=== PATIENT | male | born 1990 | race Caucasian/White ===

== ENCOUNTER 2022-08-31 21:16 | Emergency (ER) | payer SELFPAY ==
[2022-08-31 21:22] VITALS: BP 128/78; PULSE 77; RESP 18; TEMP 37.1; O2SAT 96
--- NOTE | 2022-08-31 21:45 | W.ED.GENAD ---
Discharge Plan Disposition Patient Disposition: Home Discharge Details Clinical Impression: Tick bite of abdomen ED Provider: Richy Thompson Home Meds and New Rx's Prescriptions: New doxycycline hyclate 100 mg capsule 100 mg PO BID Qty: 20 0RF Discharge Instructions Instructions: Tick Bite (ED) Additional Instructions: Continue to monitor symptoms return immediately for any new or worsening of your condition. Please take antibiotic until all capsules are gone and follow-up with primary care provider for reassessment if not fully improving. Referrals: Primary Care Provider [Outside] - 1 week (If not improving) Discharge Data Discharge Date/Time-TO BE ENTERED AT DEPARTURE: 08/31/22 22:01 Medical Decision Making Patient presenting to the emergency department for chief complaint of tick bite. He states that little more than a week ago he had a tick that bit his abdomen which he pulled off. He did state it was slightly engorged but did not think that it was attached for too long. Now over the past couple days he started to have right shoulder pain and discomfort. 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 Patient denies all other symptoms. Physical exam does show an area consistent with tick bite but does not look cellulitic is no bull's-eye type rash. Examination of the right shoulder is also unremarkable and patient has full range of motion, no swelling no erythema. Given though the patient had tick bite in approximately 1 week later started having arthralgias I am concerned about potential Lyme or tickborne illness. I do feel that it is too early for testing to be prudent or reliable so we will start patient on doxycycline for 10 days have him monitor symptoms return for new or worsening symptoms or follow-up with primary care provider. After discussion of diagnosis and plan of care patient has no further needs, questions, or concerns and states clear understanding to return to the emergency department for any worsening symptoms. This documentation was generated using [employer] system, please disregard any oddities of phrase or misspellings. HPI General Mode of arrival: ambulatory. Date/Time Provider Initiated Documentation: 08/31/22 21:29. Limitations to Documentation: no limitations. Information obtained by: patient and RN notes reviewed. History of Present Illness 31 year old M presents to the emergency department with the chief complaint of Tick bite, described as moderate, with intensity rated at 6. Quality is described as aching, and is localized to the right and upper extremity. Patient started experiencing this day(s) (4) and it has been constant. No relieving factors improve symptom(s), Patient notes no other symptoms.. Patient did receive the following treatments prior to arrival, none Related Data Home Medications Medication Instructions Recorded Confirmed doxycycline hyclate 100 mg capsule 100 mg PO BID #20 caps 08/31/22 Previous Rx's Medication Instructions Recorded doxycycline hyclate 100 mg capsule 100 mg PO BID #20 caps 08/31/22 Allergies Allergy/AdvReac Type Severity Reaction Status Date / Time Sulfa (Sulfonamide AdvReac Unverified 08/31/22 21:29 Antibiotics) General Stated Complaint: AnimalBite DIXIE: 4 Review of Systems Constitutional Constitutional: Denies fever(s) and Denies headache(s) ENT Ears, Nose, Mouth, and Throat: Denies headache(s) Musculoskeletal Musculoskeletal: Denies myalgias, Reports arthralgias and Denies joint swelling Integumentary/Breasts Skin/Breast: Reports as per HPI, Denies erythema and Denies rash Neurologic Neurologic: Denies headache(s) and Denies paresthesias PFSH All Active Problems (Updated 08/31/22 @ 21:46 by Richy Thompson NP) Tick bite of abdomen (Acute) Social History Smoking/Tobacco Use Status: Current every day Smoking risk assessment performed?: Yes Alcohol Intake: current Alcohol Intake frequency: other Alcohol type: beer Substance use type: does not use Exam Const General: cooperative, comfortable and no acute distress Orientation: alert, awake and oriented x3 Resp Effort & Inspection: normal respiratory effort and able to speak in complete sentences Skin General skin exam: erythema (Circular area with central bite gian consistent with insect/tick bite), no fluctuance, no induration and other Rashes: no rashes Neuro General: patient alert, patient awake and patient oriented x3 Extrem General: normal to inspection, full ROM, capillary refill normal and normal exam except as noted Right upper extremity: normal to inspection, full ROM and shoulder/upper arm Details: normal to inspection; no tenderness and no swelling Course Vital Signs Vital signs: Vital Signs Temperature 37.1 C 08/31/22 21: Pulse 77 08/31/22 21:22 Respiratory Rate 18 08/31/22 21:22 Blood Pressure 128/78 08/31/22 21:22 Pulse Oximetry 96 08/31/22 21:22 Temperature 37.1 C 08/31/22 21:22 Temperature Source Skin 08/31/22 21:22 Pulse 77 08/31/22 21:22 Respiratory Rate 18 08/31/22 21:22 Respiratory Effort Normal 08/31/22 21:30 Blood Pressure 128/78 08/31/22 21:22 Blood Pressure Position Sitting 08/31/22 21:22 Pulse Oximetry 96 08/31/22 21:22
[2022-08-31] MEDS: Doxycycline Hyclate 100 MG CAP PO (21:58)
== END 2022-08-31 22:01 | disposition home or self-care (01) ==
PROVIDERS: Emergency Provider Nurse Practitioner Family
DX: S30.861A Insect bite (nonvenomous) of abdominal wall, initial encounter (principal); W57.XXXA Bitten or stung by nonvenomous insect and other nonvenomous arthropods, initial encounter; M25.511 Pain in right shoulder
CPT/HCPCS: 99283; 99284

== ENCOUNTER 2023-08-03 15:59 | Emergency (ER) | payer SELFPAY ==
--- NOTE | 2023-08-03 16:00 | DI.RAD_ITS ---
Exam(s) XR KNEE RT 4V AP,LAT,GERARDO,PAT EXAM: XR KNEE RT 4V AP,LAT,GERARDO,PAT CLINICAL HISTORY: inferior knee and patella pain over 2 months. TECHNIQUE: 2D digital imaging was performed. Three views. COMPARISON: No exams were available for comparison FINDINGS: BONES: No acute fracture is present. No bony destructive lesion is seen. JOINTS: The knee is normally aligned. No joint effusion is seen. The joint spaces are maintained. SOFT TISSUE: Normal. IMPRESSION: Unremarkable radiographs of the right knee. DATA REPOSITORY: RADIATION DOSE DELIVERED:
[2023-08-03 16:04] VITALS: BP 173/91; PULSE 84; RESP 16; TEMP 37.2; O2SAT 99
--- NOTE | 2023-08-03 16:10 | ED.GENADUL_ITS ---
Discharge Plan Disposition Patient Disposition: Home Condition: Good Discharge Details Clinical Impression: Chronic pain of right knee Primary Care Provider: None,None ED Provider: Valdez Cohen Home Meds and New Rx's Prescriptions: No Action No Known Home Meds Discharge Instructions Instructions: Knee Pain (ED) Additional Instructions: At this time the x-ray does not show any evidence of fracture or significant abnormality. Please apply the Voltaren gel every 6 hours. Please take Tylenol and Motrin as needed for pain. Please use the knee brace to help with ambulation. We will place a referral for you for physical therapy. Please follow-up closely with them. If in spite of this therapy, the knee brace, and physical therapy you are not noticing improvement over the next 2 to 3 months, you may require further imaging like an MRI. He would be important to follow-up with an store receiving specialist for further discussion of this. If you notice any worsening of your symptoms, or any new symptoms such as vomiting, diarrhea, fever, chills, shortness of breath, chest pain, numbness, weakness, or fainting , please return immediately to the emergency department for reevaluation. Please follow up with your primary care provider as soon as possible for reassessment and reevaluation. As always, it was a pleasure participating in your medical care today. Stand Alone Forms: Physical Therapy Referral, Work Release Referrals: Alonzo Morrissey MD [ [facility] STAFF PHYSICIAN] - Wallace Castro MD [ [facility] STAFF PHYSICIAN] - [facility] General Date/Time Provider Initiated Documentation: 08/03/23 16:00 . [facility] Narrative: 32-year-old male with no significant past medical history who presents today for evaluation of right knee pain. Patient states that for the past 2 to 3 months he has had pain in his knee, worse when he goes up and down stairs, he denies any particular aggravating event when it first happened. He states that it has been pretty constant/consistent in severity. He denies any numbness or tingling. 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 He denies fever or chills. No history of injury as a child. He did not play football. He did play track when he was young. He has taken NSAIDs without any improvement. No other complaints at this time. Related Data Home Medications Medication Instructions Recorded Confirmed Unknown [No Known Home Meds] 08/03/23 08/03/23 Allergies Allergy/AdvReac Type Severity Reaction Status Date / Time Sulfa (Sulfonamide AdvReac Mild Nausea Unverified 08/03/23 16:03 Antibiotics) General Stated Complaint: Orthopedic DIXIE: 4 Review of Systems All systems reviewed & are unremarkable except as noted in HPI and below Exam Narrative Exam Narrative: 1.Const: Well-nourished, Well-developed, appearing stated age 2.Eyes: PERRL, no conjunctival injection, and symmetrical lids. 3.ENT: Atraumatic external nose and ears. Moist MM. Neck: Symmetric, trachea midline, No thyromegaly. 4.CVS: +S1/S2, No murmurs or gallops. Peripheral pulses 2+ and equal in all extremities. Brisk capillary refill in all extremities. 5.RESP: Unlabored respiratory effort. Clear to auscultation bilaterally. No wheezes rales or rhonchi 6.GI: Soft, Nontender/Nondistended, No hepatosplenomegaly. No guarding or r ebound. 7.MSK: Bilateral knees are atraumatic in appearance. Significant swelling for the right or left knee. Minimal tenderness inferior to the patella on the left and right aspect of the right patella. Minimal tenderness around the tibial plateau. Leg is stable to varus and valgus stressing, no significant pain with valgus stressing, mild pain with varus stressing. No significant pain with anterior posterior drawer test. Mild pain with movement of the patella. Mild pain with Melisa's test. No redness or warmth to suggest cellulitis. No posterior knee pain. Capillary refill intact. Pulses intact. 8.Skin: Warm, Dry. No rashes or lesions. 9.Neuro: general superintendent II-XII grossly intact. Sensation grossly intact, no focal neurologic deficits. 10.Psych: (AAO) x3. Appropriate mood and affect Course Vital Signs Vital signs: Vital Signs Temperature 37.2 C 08/03/23 16:04 Pulse 84 08/03/23 16:04 Respiratory Rate 16 08/03/23 16:04 Blood Pressure 173/91 H 08/03/23 16:04 Pulse Oximetry 99 08/03/23 16:04 Temperature 37.2 C 08/03/23 16:04 Temperature Source Temporal Artery Scan 08/03/23 16:04 Pulse 84 08/03/23 16:04 Respiratory Rate 16 08/03/23 16:04 Respiratory Effort Normal, Non-Labored 08/03/23 16:06 Blood Pressure 173/91 H 08/03/23 16:04 Blood Pressure Position Sitting 08/03/23 16:04 Pulse Oximetry 99 08/03/23 16:04 Oxygen Delivery Method Room Air 08/03/23 16:04 Oxygen Flow Rate 0 08/03/23 16:04 Pain Level 9 08/03/23 16:04 Medical Decision Making 32-year-old male with no significant past medical history who presents today for evaluation of right knee pain. Patient states that for the past 2 to 3 months he has had pain in his knee, worse when he goes up and down stairs, he denies any particular aggravating event when it first happened. He states that it has been pretty constant/consistent in severity. He denies any numbness or tingling. He does work for the [employer] department, he goes up multiple stairs for his other jobs as well. He denies fever or chills. No history of injury as a child. He did not play football. He did play track when he was young. He has taken NSAIDs without any improvement. No other complaints at this time. Exam demonstrates mild tenderness in the inferior aspect of the patella and over the tibial plateau. No significant swelling redness or warmth to suggest infection. Mild pain with varus stressing, positive Melisa's, but no joint laxity. Suspect mild meniscal irritation. Will get x-rays to rule out fracture, recommend physical therapy, monitor closely and reassess. Will give a hinged knee brace. 6:30 PM X-ray negative for acute process. Unfortunately we are out of hinged knee braces, and recommend he acquire 1 online, and we did give him our recommendations. Recommend continued Voltaren gel application. Will place physical therapy referral. Discussed red flags for which to return. Suspect mild meniscal or ligamentous irritation. If patient does not have improvement after 1 to 2 months of physical therapy and his knee brace and NSAID therapy, then will recommend potential outpatient nonemergent orthopedic or MRI evaluation. I have extensively reviewed the treatment plan and discharge instructions with the patient and their family. I have addressed all patient concerns at this time. The patient and family was made aware of what symptoms to monitor for that would warrant a return to the emergency department. Discussed the plan with the patient and family, they demonstrate verbal understanding and agreement with our assessment and plan at this time. The documentation in this chart was dictated using [employer] dictation software. Please excuse any dictation errors. FINDINGS: Bones/joints: Normal trabecular architecture is seen throughout the right knee with no acute fractures detected. Soft tissues: Unremarkable. IMPRESSION: No acute findings. Thank you for allowing us to participate in the care of your patient. Dictated and Authenticated by: Lawson Wilson MD 08/03/2023 5:56 PM Eastern Time ([place] & [place]) Quality:SDOH Health Related Social Needs: No Data to Display PFSH All Active Problems (Updated 08/03/23 @ 18:25 by Valdez Cohen DO) Chronic pain of right knee (Acute) Social History Smoking/Tobacco Use Status: Current every day Smoking risk assessment performed?: Yes Alcohol Intake: current Alcohol Intake frequency: other Alcohol type: beer Drug use: Never Substance use type: does not use Housing: apartment Do you feel safe at home: Yes Do you feel safe in your relationship?: Yes
--- NOTE | 2023-08-03 17:57 | DI.VRAD_ITS ---
PROCEDURE INFORMATION: Exam: XR Right Knee Exam date and time: 08/03/2023 4:43 PM Age: 32 years old Clinical indication: Right; Patient HX: Inferior knee and patella pain over 2 months TECHNIQUE: Imaging protocol: Radiologic exam of the Right knee. Views: 4 or more views. COMPARISON: No relevant prior studies available. FINDINGS: Bones/joints: Normal trabecular architecture is seen throughout the right knee with no acute fractures detected. Soft tissues: Unremarkable. IMPRESSION: No acute findings. Dictated and Authenticated by: Lawson Wilson MD. Ordering:TONO Kellogg MD
[2023-08-03 18:38] VITALS: BP 158/74; PULSE 84; RESP 16; TEMP 37.2; O2SAT 99
[2023-08-03] MEDS: Diclofenac 1% Gel 100 GM TUBE TP (18:40)
== END 2023-08-03 18:40 | disposition home or self-care (01) ==
PROVIDERS: Emergency Provider Student in an Organized Health Care Education/Training Program
DX: M25.561 Pain in right knee (principal); F17.200 Nicotine dependence, unspecified, uncomplicated
CPT/HCPCS: 99283; 73564

== ENCOUNTER 2024-03-15 11:04 | Emergency (ER) | payer SELFPAY ==
[2024-03-15 11:13] VITALS: BP 156/96; PULSE 104; RESP 15; TEMP 36.4; O2SAT 98
--- NOTE | 2024-03-15 11:43 | ED.GENADUL_ITS ---
Discharge Plan Disposition Patient Disposition: Home Condition: Good Discharge Details Clinical Impression: Lesion of skin of scalp, Atypical nevus of scalp Primary Care Provider: Unknown,Unknown ED Provider: Valdez Cohen Home Meds and New Rx's Prescriptions: No Action No Known Home Meds Discharge Instructions Additional Instructions: At this time your lesion certainly is atypical however it does not show evidence of an infection, an arterial venous malformation, or other life-threatening etiology. That being said I am concerned that you have a hyperplastic response from the initial trauma/injury. This lesion needs to be further evaluated, surgically removed, and evaluated by pathologist. The surgical services will contact you for an appointment time. If you notice any worsening of your symptoms, or any new symptoms such as vomiting, diarrhea, fever, chills, shortness of breath, chest pain, numbness, weakness, or fainting , please return immediately to the emergency department for reevaluation. Please follow up with your primary care provider as soon as possible for reassessment and reevaluation. As always, it was a pleasure participating in your medical care today. Referrals: Asif Guajardo MD [ [facility] STAFF PHYSICIAN] - Discharge Data Discharge Date/Time-TO BE ENTERED AT DEPARTURE: 03/15/24 11:48 HPI General Date/Time Provider Initiated Documentation: 03/15/24 11:26 . HPI Narrative: This is a pleasant 33-year-old male with no significant past medical history who presents today for evaluation of a lesion on his scalp. About 3 months ago he was working on a car when the flat part of the trunk came down and hit his head. He had a small scrape there. He subsequently developed a scab, but over time a lesion developed in that area and has been growing quite rapidly over the past 2 to 3 months. He denies any significant pain or tenderness. He does admit to mild pain when he scraped the scab off, but otherwise denies any symptomatology. There is a small amount of bleeding that occurs when this happens, but no other bleeding otherwise. No history of skin cancer lesions otherwise. No other complaints. Related Data Home Medications ?Medication ?Instructions ?Recorded ?Confirmed Unknown [No Known Home Meds] 08/03/23 03/15/24 Allergies Allergy/AdvReac Type Severity Reaction Status Date / Time Sulfa (Sulfonamide AdvReac Mild Nausea Unverified 03/15/24 11:18 Antibiotics) General Stated Complaint: HeadInjury DIXIE: 4 Exam Narrative Exam Narrative: 1.Const: Well-nourished, Well-developed, appearing stated age 2.Eyes: PERRL, no conjunctival injection, and symmetrical lids. 3.ENT: Atraumatic external nose and ears. Moist MM. Neck: Symmetric, trachea midline, No thyromegaly. 4.CVS: +S1/S2, Peripheral pulses 2+ and equal in all extremities. Brisk capillary refill in all extremities. 5.RESP: Unlabored respiratory effort. Clear to auscultation bilaterally. No wheezes rales or rhonchi 6.GI: Soft, Nontender/Nondistended, No hepatosplenomegaly. No guarding or rebound. 7.MSK: Normocephalic/Atraumatic, Extremities w/o deformity or ttp No cyanosis or clubbing, Normal movement of all extremities 8.Skin: Warm, Dry. On the patient's scalp there is a polyp-like lesion with a questionable minimal stalk at the base. Scab is on the top of it total diameter is about 1 cm. It is nearly spherical, and raised about 7 mm of the skin. No active bleeding. 9.Neuro: environmental sustainability manager II-XII grossly intact. Sensation grossly intact, no focal neurologic deficits. 10.Psych: (AAO) x3. Appropriate mood and affect Course Vital Signs Vital signs: Vital Signs Temperature 36.4 C 03/15/24 11:13 Pulse 104 H 03/15/24 11:13 Respiratory Rate 15 03/15/24 11:13 Blood Pressure 156/96 H 03/15/24 11:13 Pulse Oximetry 98 03/15/24 11:13 Temperature 36.4 C 03/15/24 11:13 Pulse 104 H 03/15/24 11:13 Respiratory Rate 15 03/15/24 11:13 Blood Pressure 156/96 H 03/15/24 11:13 Blood Pressure Position Sitting 03/15/24 11:13 Pulse Oximetry 98 03/15/24 11:13 Oxygen Delivery Method Room Air 03/15/24 11:13 Oxygen Flow Rate 0 03/15/24 11:13 Medical Decision Making This is a pleasant 33-year-old male with no significant past medical history who presents today for evaluation of a lesion on his scalp. About 3 months ago he was working on a car when the flat part of the trunk came down and hit his head. He had a small scrape there. He subsequently developed a scab, but over time a lesion developed in that area and has been growing quite rapidly over the past 2 to 3 months. He denies any significant pain or tenderness. He does admit to mild pain when he scraped the scab off, but otherwise denies any symptomatology. There is a small amount of bleeding that occurs when this happens, but no other bleeding otherwise. No history of skin cancer lesions otherwise. No other complaints. On the patient's scalp there is a polyp-like lesion with a questionable minimal stalk at the base. Scab is on the top of it total diameter is about 1 cm. It is nearly spherical, and raised about 7 mm of the skin. No active bleeding. Bedside ultrasound shows no evidence of large AVM in the lesion. Please see associated picture for better understanding. Suspect hyperplastic posttraumatic lesion. Differential does include basal cell or squamous cell carcinoma although this is less likely. Atypical nevus is also on the differential. We did contact surgery and spoke with Dr. Guajardo. He will see the patient in the clinic for removal and pathology evaluation. Patient otherwise stable for discharge. Will place referral on his behalf. I have extensively reviewed the treatment plan and discharge instructions with the patient. I have addressed all patient concerns at this time. The patient was made aware of what symptoms to monitor for that would warrant a return to the emergency department. Discussed the plan with the patient, they demonstrate verbal understanding and agreement with our assessment and plan at this time. The documentation in this chart was dictated using [employer] dictation software. Please excuse any dictation errors. Quality:SDOH Health Related Social Needs: 2 No Data to Display PFSH All Active Problems (Updated 03/15/24 @ 15:27 by Valdez Cohen DO) Atypical nevus of scalp (Acute) Lesion of skin of scalp (Acute) Social History Smoking/Tobacco Use Status: Current every day Smoking risk assessment performed?: Yes Alcohol Intake: current Alcohol Intake frequency: other Alcohol type: beer Drug use: Never Substance use type: does not use Housing: apartment Do you feel safe at home: Yes Do you feel safe in your relationship?: Yes POCUS Exam (ED) Limited Soft Tissue Exam DATE OF EXAM: 03/15/24 TIME OF EXAM: 15:19 PROVIDER THAT PERFORMED THE STUDY: Valdez Cohen IS THIS A REPEAT EXAM DURING THIS ENCOUNTER: No LOCATION OF EXAM: Neck/left side REASON FOR EXAM: Other (On the patient's left scalp there is a small lesion, bedside ultrasound shows no large intra lesion vessels, however there does appear to be evidence of vascular components deeper to the lesion) indication: On the patient's left scalp there is a small lesion, bedside ultrasound shows no large intra lesion vessels, however there does appear to be evidence of vascular components deeper to the lesion VISUALIZED STRUCTURES: Skin and Subcutaneous tissue Exam Complete
== END 2024-03-15 11:48 | disposition home or self-care (01) ==
PROVIDERS: Emergency Provider Student in an Organized Health Care Education/Training Program
DX: D22.4 Melanocytic nevi of scalp and neck (principal); F17.210 Nicotine dependence, cigarettes, uncomplicated
CPT/HCPCS: 76536; 99284

== ENCOUNTER 2024-04-06 13:51 | Outpatient (REF) | payer SELFPAY ==
--- NOTE | 2024-04-06 13:50 | SKI_PTH ---
PATIENT: Ronald Hathaway LOC: [facility] U#:[id number] AGE/SX: 33/M ROOM: RE04/06/[address]: Asif Guajardo MD : 1990 BED: DIS: 04/06/2024 SPEC #: [id number] RECD: 04/06/24 17:44 STATUS: DYLAN REQ #: [id number] ERNESTO: 04/06/24 13:[address]: Asif Guajardo DEPT: Surgical Specimen RECD BY: Jazlyn Amaral ENTERED: 04/06/24 17:44 SP TYPE: MARY MACEDO DR: Unknown,Unknown Tissues: 1 - SKIN BIOPSY(SHAVE/PUNCH) Procedures: SKIN LEVEL 4 Comments: [id number]
== END 2024-04-06 13:52 | disposition home or self-care (01) ==
LOC: LBN 13:51
PROVIDERS: Referring Provider Surgery; Visit Provider Surgery
DX: D18.01 Hemangioma of skin and subcutaneous tissue (principal)
CPT/HCPCS: 88305